=== PATIENT | male | born 1950 | race African-American/Black ===

== ENCOUNTER 2018-12-08 18:47 | Emergency (ER) | payer MEDICARE, MEDICAID ==
[~2018-12-08] VITALS: Ht 170.2 cm; Wt 59.0 kg
[~2018-12-08 18:47] MED LIST: ADALAT CC30 MG PO; AMLODIPINE10 MG PO; FLEXERIL PO; KEFLEX500 MG PO; LORTAB 5/3255 MG PO; NO; PROCARDIA10 MG PO; ULTRAM50 M1 PO; ZOFRAN4 MG/TAB PO
[2018-12-08] MEDS ORDERED: KEFLEX500 M1 PO (19:50)
[2018-12-08 19:54] VITALS: BP 151/90
== END 2018-12-08 19:54 | disposition home or self-care (01) ==
LOC: ED 18:47
PROC: 0HQFXZZ Repair Right Hand Skin, External Approach (ICD-10-PCS; principal; 2018-12-08)
DX: S61.011A Laceration without foreign body of right thumb without damage to nail, initial encounter (principal); I10 Essential (primary) hypertension; F17.210 Nicotine dependence, cigarettes, uncomplicated; W26.0XXA Contact with knife, initial encounter; Y93.G1 Activity, food preparation and clean up; Y92.009 Unspecified place in unspecified non-institutional (private) residence as the place of occurrence of the external cause

== ENCOUNTER 2019-02-10 09:24 | Emergency (ER) | payer MEDICARE, MEDICAID ==
[~2019-02-10] VITALS: Ht 170.2 cm; Wt 58.0 kg
[~2019-02-10 09:24] MED LIST changes: +KEFLEX500 M1 PO
[2019-02-10] MEDS ORDERED: TORADOL PO (11:01)
[2019-02-10 11:09] VITALS: BP 119/79
== END 2019-02-10 11:09 | disposition home or self-care (01) ==
LOC: ED 09:24
DX: S63.501A Unspecified sprain of right wrist, initial encounter (principal); I10 Essential (primary) hypertension; F17.210 Nicotine dependence, cigarettes, uncomplicated; V17.0XXA Pedal cycle driver injured in collision with fixed or stationary object in nontraffic accident, initial encounter; Y93.55 Activity, bike riding

== ENCOUNTER 2019-04-09 09:16 | Emergency (ER) | payer MEDICARE, MEDICAID ==
[~2019-04-09] VITALS: Ht 170.2 cm; Wt 62.0 kg
[~2019-04-09 09:16] MED LIST changes: +TORADOL PO
[2019-04-09 10:13] LABS: HEMATOCRIT 42.1 % (39.0-50.0); HEMOGLOBIN 14.1 g/dl (14.0-18.0); IMMATURE GRANULOCYTES 0.4 % (0.0-5.0); MEAN CELL VOLUME 83.9 fL CALC (80.0-100.0); MEAN CORPUSCULAR HGB 28.1 pG CALC (26.0-32.0); MEAN CORPUSCULAR HGB CONC 33.5 g/L CALC (32.0-36.0); NEUT# 2.79 thou/uL (1.82-7.42); RED BLOOD COUNT 5.02 mill/uL (4.70-6.10); RED CELL DISTRI WIDTH 16.1 % (11.5-15.5)
[2019-04-09 10:19] LABS: URINE BILIRUBIN - DIPSTICK NEGATIVE (NEGATIVE); URINE BLOOD DIPSTICK NEGATIVE (NEGATIVE); URINE COLOR YELLOW; URINE GLUCOSE - DIPSTICK NEGATIVE (NEGATIVE); URINE KETONE NEGATIVE (NEGATIVE); URINE LEUK ESTERASE NEGATIVE (NEGATIVE); URINE NITRITE - DIPSTICK NEGATIVE (Negative); URINE PH 6.5 (4.5-8.0); URINE PROTEIN - DIPSTICK NEGATIVE (NEG-TRACE)
[2019-04-09 10:30] LABS: ALBUMIN 4.6 g/dL (3.2-5.0); ALKALINE PHOSPHATASE 97 u/l (38-126); ANION GAP 13 (6-22 (CALC)); BILIRUBIN, TOTAL 0.5 mg/dL (0.0-1.4); BUN 4 mg/dL (8-23); BUN/CREATININE RATIO 5 (12-20 (CALC)); CARBON DIOXIDE 28 mmol/l (22-30); CHLORIDE 101 mmol/l (95-108); CREATININE 0.8 mg/dL (0.7-1.3); GFR > 60 ML/MIN (>=60 (CALC)); GFR FOR AFR.AMER. > 60 ML/MIN (>=60 (CALC)); LIPASE 176 u/l (23-300); POTASSIUM 4.1 mmol/l (3.5-5.1); SODIUM 138 mmol/l (137-146)
[2019-04-09 10:34] LABS: SGOT/AST 258 u/l (19-48)
[2019-04-09 12:52] VITALS: BP 132/92
== END 2019-04-09 12:58 | disposition home or self-care (01) ==
LOC: ED 09:16
PROVIDERS: Family Medicine
DX: R10.31 Right lower quadrant pain (principal); I10 Essential (primary) hypertension; F17.200 Nicotine dependence, unspecified, uncomplicated

== ENCOUNTER 2019-04-11 08:20 | Emergency (ER) | payer MEDICARE, MEDICAID ==
[~2019-04-11] VITALS: Ht 170.2 cm; Wt 58.0 kg
[2019-04-11 09:25] VITALS: BP 120/81
== END 2019-04-11 09:25 | disposition home or self-care (01) ==
LOC: ED 08:20
DX: R13.10 Dysphagia, unspecified (principal); R11.2 Nausea with vomiting, unspecified; R19.5 Other fecal abnormalities; I10 Essential (primary) hypertension; F17.210 Nicotine dependence, cigarettes, uncomplicated

== ENCOUNTER 2019-04-19 15:50 | Emergency (ER) | payer MEDICARE, MEDICAID ==
[~2019-04-19] VITALS: Ht 170.2 cm; Wt 59.0 kg
[2019-04-19] MEDS ORDERED: OMEPRAZOLE DR40 MG PO (16:10)
[2019-04-19] MEDS ORDERED: AMLODIPINE BESY10 MG PO (16:10)
[2019-04-19] MEDS ORDERED: RANITIDINE HCL150 MG PO (16:12)
[2019-04-19] MEDS ORDERED: TAMSULOSIN HCL0.4 MG PO (16:12)
[2019-04-19] MEDS ORDERED: ERYTHROMYCIN O3.5 GM OU (16:52)
[2019-04-19] MEDS ORDERED: ACULAR LS0.4 % OS (16:52)
[2019-04-19 16:55] VITALS: BP 140/89
== END 2019-04-19 16:55 | disposition home or self-care (01) ==
LOC: ED 15:50
DX: H10.9 Unspecified conjunctivitis (principal); I10 Essential (primary) hypertension; F17.210 Nicotine dependence, cigarettes, uncomplicated

== ENCOUNTER 2019-10-23 | Emergency (ER) | payer MEDICARE, MEDICAID ==
[~2019-10-23] MED LIST changes: +ACULAR LS0.4 % OS; +AMLODIPINE BESY10 MG PO; +ERYTHROMYCIN O3.5 GM OU; +OMEPRAZOLE DR40 MG PO; +RANITIDINE HCL150 MG PO; +TAMSULOSIN HCL0.4 MG PO
[2019-10-23 12:40] LABS: HEMOGLOBIN 13.4 g/dl (14.0-18.0); IMMATURE GRANULOCYTES 0.4 % (0.0-5.0); MEAN CORPUSCULAR HGB 27.8 pG CALC (26.0-32.0); MEAN CORPUSCULAR HGB CONC 33.5 g/L CALC (32.0-36.0); NEUT# 2.22 thou/uL (1.82-7.42); RED BLOOD COUNT 4.82 mill/uL (4.70-6.10)
[2019-10-23 12:41] LABS: URINE BILIRUBIN - DIPSTICK NEGATIVE (NEGATIVE); URINE BLOOD DIPSTICK NEGATIVE (NEGATIVE); URINE COLOR YELLOW; URINE GLUCOSE - DIPSTICK NEGATIVE (NEGATIVE); URINE KETONE NEGATIVE (NEGATIVE); URINE LEUK ESTERASE TRACE (NEGATIVE); URINE NITRITE - DIPSTICK NEGATIVE (Negative); URINE PROTEIN - DIPSTICK NEGATIVE (NEG-TRACE); URINE UROBILINOGEN - DIPSTICK 0.2 E.U./dL (0.2)
[2019-10-23 12:52] LABS: ALBUMIN 4.4 g/dL (3.2-5.0); ALKALINE PHOSPHATASE 90 u/l (38-126); ANION GAP 15 (6-22 (CALC)); BILIRUBIN, TOTAL 0.5 mg/dL (0.0-1.4); BUN 7 mg/dL (8-23); BUN/CREATININE RATIO 9 (12-20 (CALC)); CARBON DIOXIDE 24 mmol/l (22-30); CHLORIDE 99 mmol/l (95-108); CREATININE 0.8 mg/dL (0.7-1.3); GFR > 60 ML/MIN (>=60 (CALC)); GFR FOR AFR.AMER. > 60 ML/MIN (>=60 (CALC)); POTASSIUM 4.6 mmol/l (3.5-5.1); SODIUM 133 mmol/l (137-146); TOTAL PROTEIN 7.7 g/dL (6.3-8.2)
[2019-10-23 12:55] LABS: SGOT/AST 61 u/l (19-48)
[2019-10-23 13:00] LABS: MYOGLOBIN 21 ng/mL (0 - 121)
[2019-10-23] MEDS ORDERED: FLEXERIL PO (13:54)
[2019-10-23] MEDS ORDERED: NAPROXEN500 MG PO (13:54)
== END 2019-10-23 14:13 | disposition home or self-care (01) ==
PROVIDERS: Emergency Medicine
DX: M79.10 Myalgia, unspecified site (principal); I10 Essential (primary) hypertension; F17.210 Nicotine dependence, cigarettes, uncomplicated

== ENCOUNTER 2022-02-14 18:14 | Emergency (ER) | payer MEDICARE, MEDICAID ==
[2022-02-14] VITALS (9 sets, daily range): BP systolic 129–148; BP diastolic 68–88
[~2022-02-14] VITALS: Ht 170.2 cm; Wt 63.0 kg
[~2022-02-14 18:14] MED LIST changes: +NAPROXEN500 MG PO
[2022-02-14] MEDS ORDERED: TYLENOL500 MG PO (18:28)
[2022-02-14 19:28] LABS: HEMATOCRIT 42.5 % (39.0-50.0); HEMOGLOBIN 14.4 g/dl (14.0-18.0); IMMATURE GRANULOCYTES 0.5 % (0.0-5.0); MEAN CELL VOLUME 88.9 fL CALC (80.0-100.0); MEAN CORPUSCULAR HGB 30.1 pG CALC (26.0-32.0); MEAN CORPUSCULAR HGB CONC 33.9 g/dL CAL (32.0-36.0); NEUT# 3.07 thou/uL (1.82-7.42); RED BLOOD COUNT 4.78 mill/uL (4.70-6.10); RED CELL DISTRI WIDTH 15.4 % (11.5-15.5)
[2022-02-14 19:41] LABS: ALBUMIN 3.9 g/dL (3.2-5.0); ALKALINE PHOSPHATASE 77 u/l (38-126); BILIRUBIN, TOTAL 0.3 mg/dL (0.0-1.4); BUN 6 mg/dL (8-23); BUN/CREATININE RATIO 7 (12-20 (CALC)); CARBON DIOXIDE 21 mmol/l (22-30); CHLORIDE 94 mmol/l (95-108); ETHYL ALCOHOL 93 mg/dl (0-30); GFR FOR AFR.AMER. > 60 ML/MIN (>=60 (CALC)); GFR OTHER RACES > 60 ML/MIN (>=60 (CALC)); SGOT/AST 34 u/l (19-48); SODIUM 127 mmol/l (137-146); TOTAL PROTEIN 7.2 g/dL (6.3-8.2)
[2022-02-14 19:52] LABS: ANION GAP 16 (6-22 (CALC)); MYOGLOBIN 301 ng/mL (0 - 121); POTASSIUM 3.6 mmol/l (3.5-5.1)
[2022-02-14] MEDS ORDERED: NAPROXEN500 MG PO (20:17)
[2022-02-14 20:39] LABS: URINE BILIRUBIN - DIPSTICK NEGATIVE (NEGATIVE); URINE BLOOD DIPSTICK NEGATIVE (NEGATIVE); URINE COLOR YELLOW; URINE GLUCOSE - DIPSTICK NEGATIVE (NEGATIVE); URINE KETONE NEGATIVE (NEGATIVE); URINE LEUK ESTERASE NEGATIVE (NEGATIVE); URINE PROTEIN - DIPSTICK NEGATIVE (NEG-TRACE); URINE SPECIFIC GRAVITY <=1.005; URINE UROBILINOGEN - DIPSTICK 0.2 E.U./dL (0.2)
[2022-02-14 20:42] LABS: URINE NITRITE - DIPSTICK NEGATIVE (Negative)
== END 2022-02-14 20:55 | disposition home or self-care (01) ==
LOC: ED 18:14
PROVIDERS: Emergency Medicine
DX: S00.11XA Contusion of right eyelid and periocular area, initial encounter (principal); F10.10 Alcohol abuse, uncomplicated; I10 Essential (primary) hypertension; F17.200 Nicotine dependence, unspecified, uncomplicated; V18.0XXA Pedal cycle driver injured in noncollision transport accident in nontraffic accident, initial encounter; Y93.55 Activity, bike riding; Y92.410 Unspecified street and highway as the place of occurrence of the external cause

== ENCOUNTER 2022-12-31 20:02 | Emergency (ER) | payer MEDICARE, MEDICAID ==
[~2022-12-31] VITALS: Ht 170.2 cm; Wt 58.0 kg
[~2022-12-31 20:02] MED LIST changes: +TYLENOL500 MG PO
[2022-12-31 20:53] LABS: URINE BILIRUBIN - DIPSTICK SMALL (NEGATIVE); URINE BLOOD DIPSTICK TRACE-INTACT (NEGATIVE); URINE COLOR YELLOW; URINE GLUCOSE - DIPSTICK NEGATIVE (NEGATIVE); URINE KETONE TRACE mg/dL (NEGATIVE); URINE LEUK ESTERASE MODERATE (NEGATIVE); URINE NITRITE - DIPSTICK NEGATIVE (Negative); URINE PH 5.5 (4.5-8.0); URINE PROTEIN - DIPSTICK TRACE mg/dL (NEG-TRACE); URINE SPECIFIC GRAVITY 1.025
[2022-12-31 21:00] LABS: URINE RBC 0-2 RBC/hpf (0-5); URINE WBC >100 WBC/hpf (0-5)
[2022-12-31 21:01] LABS: URINE BACTERIA FEW hpf; URINE SQUAMOUS EPITHELIAL CELL MODERATE EPI/hpf (0-FEW)
[2022-12-31 21:04] LABS: BASO% 1.4 % (0-3); EOS% 3.6 % (0-8); HEMATOCRIT 42.4 % (39.0-50.0); HEMOGLOBIN 14.2 g/dl (14.0-18.0); LYMPH% 47.6 % (15-41); MEAN CELL VOLUME 89.5 fL CALC (80.0-100.0); MEAN CORPUSCULAR HGB CONC 33.5 g/dL CAL (32.0-36.0); MONO% 14.4 % (2-13); NEUT# 1.67 thou/uL (1.82-7.42); RED BLOOD COUNT 4.74 mill/uL (4.70-6.10); RED CELL DISTRI WIDTH 14.3 % (11.5-15.5)
[2022-12-31 21:15] LABS: ALBUMIN 3.9 g/dL (3.2-5.0); ALKALINE PHOSPHATASE 46 u/l (38-126); ANION GAP 13 (6-22 (CALC)); BILIRUBIN, TOTAL 0.1 mg/dL (0.2-1.3); BUN 14 mg/dL (8-23); BUN/CREATININE RATIO 12 (12-20 (CALC)); CARBON DIOXIDE 24 mmol/l (22-30); CHLORIDE 101 mmol/l (95-108); CREATININE 1.1 mg/dL (0.7-1.3); ETHYL ALCOHOL 29 mg/dl (0-30); GFR FOR AFR.AMER. > 60 ML/MIN (>=60 (CALC)); GFR OTHER RACES > 60 ML/MIN (>=60 (CALC)); POTASSIUM 3.3 mmol/l (3.5-5.1); SGOT/AST 26 u/l (19-48); SODIUM 135 mmol/l (137-146); TOTAL PROTEIN 6.7 g/dL (6.3-8.2)
[2022-12-31] MEDS ORDERED: KEFLEX500 MG PO (21:28)
[2022-12-31 21:34] VITALS: BP 124/72
== END 2022-12-31 21:46 | disposition home or self-care (01) ==
LOC: ED 20:02
PROVIDERS: Emergency Medicine
DX: N39.0 Urinary tract infection, site not specified (principal); B96.20 Unspecified Escherichia coli [E. coli] as the cause of diseases classified elsewhere; I10 Essential (primary) hypertension; F17.200 Nicotine dependence, unspecified, uncomplicated

== ENCOUNTER 2023-02-25 08:07 | Emergency (ER) | payer MEDICARE, MEDICAID ==
[~2023-02-25] VITALS: Ht 170.2 cm; Wt 61.4 kg
[2023-02-25 08:19] VITALS: BP 146/85
[2023-02-25 08:35] VITALS: BP 143/86
[2023-02-25 08:47] LABS: BASO% 0.9 % (0-3); EOS% 2.8 % (0-8); HEMOGLOBIN 16.1 g/dl (14.0-18.0); IMMATURE GRANULOCYTES 0.2 % (0.0-5.0); MEAN CELL VOLUME 91.7 fL CALC (80.0-100.0); MEAN CORPUSCULAR HGB 29.7 pG CALC (26.0-32.0); MEAN CORPUSCULAR HGB CONC 32.4 g/dL CAL (32.0-36.0); NEUT# 1.82 thou/uL (1.82-7.42); NEUT% 42.1 % (42-76); RED BLOOD COUNT 5.42 mill/uL (4.70-6.10); RED CELL DISTRI WIDTH 14.5 % (11.5-15.5)
[2023-02-25 08:57] LABS: HEMATOCRIT 49.7 % (39.0-50.0)
[2023-02-25 09:00] VITALS: BP 136/77
[2023-02-25 09:09] LABS: ALBUMIN 4.4 g/dL (3.2-5.0); BUN 5 mg/dL (8-23); BUN/CREATININE RATIO 6 (12-20 (CALC)); CHLORIDE 101 mmol/l (95-108); CREATININE 0.8 mg/dL (0.7-1.3); GFR FOR AFR.AMER. > 60 ML/MIN (>=60 (CALC)); GFR OTHER RACES > 60 ML/MIN (>=60 (CALC)); SGOT/AST 34 u/l (19-48); SODIUM 132 mmol/l (137-146); TOTAL PROTEIN 7.6 g/dL (6.3-8.2)
[2023-02-25 09:10] LABS: ALKALINE PHOSPHATASE 77 u/l (38-126); ANION GAP 16 (6-22 (CALC)); BILIRUBIN, TOTAL 0.3 mg/dL (0.2-1.3); CARBON DIOXIDE 19 mmol/l (22-30)
[2023-02-25 09:30] VITALS: BP 151/71
[2023-02-25 10:06] VITALS: BP 151/71
== END 2023-02-25 10:06 | disposition home or self-care (01) ==
LOC: ED 08:07
PROVIDERS: Family Medicine
DX: R19.5 Other fecal abnormalities (principal); I10 Essential (primary) hypertension; F17.290 Nicotine dependence, other tobacco product, uncomplicated

== ENCOUNTER 2023-08-29 10:07 | Emergency (ER) | payer MEDICARE, MEDICAID ==
[~2023-08-29] VITALS: Ht 170.2 cm; Wt 68.0 kg
[2023-08-29 10:17] VITALS: BP 147/89
[2023-08-29 10:45] LABS: BASO% 0.8 % (0-3); EOS% 3.7 % (0-8); HEMOGLOBIN 17.5 g/dl (14.0-18.0); IMMATURE GRANULOCYTES 0.2 % (0.0-5.0); LYMPH% 47.2 % (15-41); MEAN CELL VOLUME 94.3 fL CALC (80.0-100.0); MEAN CORPUSCULAR HGB 31.1 pG CALC (26.0-32.0); MONO% 10.6 % (2-13); NEUT# 1.8 thou/uL (1.82-7.42); NEUT% 37.5 % (42-76); RED BLOOD COUNT 5.62 mill/uL (4.70-6.10); RED CELL DISTRI WIDTH 14.4 % (11.5-15.5)
[2023-08-29 10:45] LABS: URINE BILIRUBIN - DIPSTICK Negative (NEGATIVE); URINE BLOOD DIPSTICK Negative (NEGATIVE); URINE GLUCOSE - DIPSTICK Negative (NEGATIVE); URINE KETONE Negative (NEGATIVE); URINE NITRITE - DIPSTICK Negative (Negative); URINE PROTEIN - DIPSTICK Negative (NEG-TRACE); URINE UROBILINOGEN - DIPSTICK 0.2 E.U./dL (0.2)
[2023-08-29 10:46] LABS: URINE COLOR Yellow; URINE LEUK ESTERASE Moderate (NEGATIVE)
[2023-08-29 10:56] LABS: URINE SQUAMOUS EPITHELIAL CELL FEW EPI/hpf (0-FEW)
[2023-08-29 10:57] LABS: URINE BACTERIA FEW hpf; URINE TRICHOMONAS FEW hpf
[2023-08-29 10:59] LABS: ALBUMIN 4.8 g/dL (3.2-5.0); ALKALINE PHOSPHATASE 81 u/l (38-126); BUN 5 mg/dL (8-23); BUN/CREATININE RATIO 5 (12-20 (CALC)); CHLORIDE 97 mmol/l (95-108); CREATININE 0.9 mg/dL (0.7-1.3); GFR FOR AFR.AMER. > 60 ML/MIN (>=60 (CALC)); GFR OTHER RACES > 60 ML/MIN (>=60 (CALC)); POTASSIUM 4.1 mmol/l (3.5-5.1); SGOT/AST 29 u/l (19-48); SODIUM 135 mmol/l (137-146); TOTAL PROTEIN 8.1 g/dL (6.3-8.2)
[2023-08-29 11:01] LABS: ANION GAP 17 (6-22 (CALC)); BILIRUBIN, TOTAL 0.5 mg/dL (0.2-1.3); CARBON DIOXIDE 25 mmol/l (22-30)
[2023-08-29] MEDS ORDERED: MINOCYCLINE HY100 MG PO (12:45)
[2023-08-29] MEDS ORDERED: OMNICEF300 MG PO (12:45)
[2023-08-29 12:51] VITALS: BP 147/89
[2023-08-29] MEDS ORDERED: NAPROXEN500 MG PO (12:53)
== END 2023-08-29 13:12 | disposition home or self-care (01) ==
LOC: ED 10:07
PROVIDERS: Family Medicine
DX: M25.512 Pain in left shoulder (principal); R07.81 Pleurodynia; A59.00 Urogenital trichomoniasis, unspecified; K59.00 Constipation, unspecified; I10 Essential (primary) hypertension; F17.210 Nicotine dependence, cigarettes, uncomplicated